=== PATIENT | male | born 1955 | race Caucasian/White ===

== ENCOUNTER → 2024-09-04 14:23 | Outpatient (REF) | payer MEDICARE, OTHER, SELFPAY | LOC: RAD 14:23 | PROVIDERS: ATTENDING PHYSICIAN Internal Medicine Critical Care Medicine; FAMILY PHYSICIAN Family Medicine | DX: J45.909 Unspecified asthma, uncomplicated (principal); R06.09 Other forms of dyspnea; J44.9 Chronic obstructive pulmonary disease, unspecified | CPT/HCPCS: 71046 ==

== ENCOUNTER → 2024-09-15 14:50 | Outpatient (REF) | payer MEDICARE, OTHER, SELFPAY | LOC: HWRCS 14:50 | PROVIDERS: ATTENDING PHYSICIAN Internal Medicine; FAMILY PHYSICIAN Family Medicine | DX: I25.10 Atherosclerotic heart disease of native coronary artery without angina pectoris (principal); I25.810 Atherosclerosis of coronary artery bypass graft(s) without angina pectoris; I10 Essential (primary) hypertension; I49.3 Ventricular premature depolarization | CPT/HCPCS: 93306 ==

== ENCOUNTER → 2024-09-21 14:19 | Outpatient (REF) | payer MEDICARE, OTHER, SELFPAY | LOC: HWRAD 14:19 | PROVIDERS: ATTENDING PHYSICIAN Internal Medicine Critical Care Medicine; FAMILY PHYSICIAN Family Medicine | DX: Q76.6 Other congenital malformations of ribs (principal) | CPT/HCPCS: 71250 ==

== ENCOUNTER 2024-11-01 06:23 | Day surgery (SDC) | payer MEDICARE, OTHER, SELFPAY ==
[2024-11-01] VITALS (8 sets, daily range): BP systolic 109–136; BP diastolic 49–79; BMI 27.4
[2024-11-01] MEDS: NORMOSOL-R/PLASMALYTE-A 1000 IV (10:50)
== END 2024-11-01 15:45 | disposition home or self-care (01) ==
LOC: SDS 06:23
PROVIDERS: ATTENDING PHYSICIAN Otolaryngology
DX: J31.0 Chronic rhinitis (principal); J34.89 Other specified disorders of nose and nasal sinuses
CPT/HCPCS: 30220; 31231; 87070; 87075; 87077; 87147; 87205

== ENCOUNTER → 2025-06-14 13:30 | Outpatient (REF) | payer MEDICARE, OTHER, SELFPAY | LOC: EMG 13:30 | PROVIDERS: ATTENDING PHYSICIAN Family Medicine | DX: Z23 Encounter for immunization (principal); R20.2 Paresthesia of skin; R20.0 Anesthesia of skin | CPT/HCPCS: 95886; 95911 ==

== ENCOUNTER → 2025-06-27 09:28 | Outpatient (REF) | payer MEDICARE, OTHER, SELFPAY | LOC: WDC 09:28 | PROVIDERS: ATTENDING PHYSICIAN Family Medicine | DX: N64.4 Mastodynia (principal) | CPT/HCPCS: 76642; 77062; 77066 ==